=== PATIENT | female | born 2000 | race Caucasian/White ===

== ENCOUNTER 2022-07-14 06:36 | Emergency (ER) | payer MEDICAID, OTHER ==
[~2022-07-14] VITALS: Ht 162.6 cm; Wt 93.1 kg
[2022-07-14 06:45] VITALS: BP 153/109
[2022-07-15] MEDS ORDERED: IBUP-2030 MT (16:07)
== END 2022-07-14 10:01 | disposition left against medical advice (07) ==
LOC: ER 06:36
DX: Z53.21 Procedure and treatment not carried out due to patient leaving prior to being seen by health care provider (principal); J45.909 Unspecified asthma, uncomplicated

== ENCOUNTER 2022-07-15 08:38 | Emergency (ER) | payer MEDICAID, OTHER ==
[~2022-07-15] VITALS: Ht 162.6 cm; Wt 81.0 kg
[2022-07-15] MEDS ORDERED: SODIUM CHLORIDE 0.9% 1,000 ML IV ONE (09:15)
[2022-07-15] MEDS ORDERED: DIPHENHYDRAMINE 50MG/ML VIAL IV ONE (09:15)
[2022-07-15] MEDS ORDERED: PROCHLORPERAZINE 10MG/2ML VIAL IV ONE (09:15)
[2022-07-15 09:41] LABS: BASOPHILS % 0.3 % (0.0-2.0); EOSINOPHILS % 0.7 % (0.0-5.0); HEMATOCRIT. 41.7 % (36.0-48.0); LYMPHOCYTES % 19.8 % (20.0-50.0); MEAN CORPUSCULAR HEMOGLOBIN 28.5 pg (28.0-32.0); MEAN CORPUSCULAR VOLUME 84.7 fL (81.0-99.0); MEAN PLATELET VOLUME 9.6 fl (7.4-10.4); MONOCYTES % 5.6 % (2.0-8.0); NEUTROPHILS % 73.6 % (40.0-76.0); PLATELET 274 x1000/uL (130-400); RED BLOOD CELL COUNT 4.92 mill/uL (4.2-5.4); RED CELL DISTRIBUTION WIDTH 13.4 % (11.6-14.6)
[2022-07-15] MEDS ORDERED: DIPHENHYDRAMINE 50MG/ML VIAL IV NR (09:45)
[2022-07-15 09:47] LABS: CHLORIDE 104 mEq/L (98-107)
[2022-07-15 13:30] LABS: PARTIAL THROMBOPLASTIN TIME 27.6 sec (23.4-31.0); PROTHROMBIN TIME 10.6 sec (9.6-11.0)
[2022-07-15] MEDS ORDERED: LIDOCAINE HCL 1% 10 MG/ML 10ML VIAL ONE (14:42)
[2022-07-15] MEDS ORDERED: IBUP-2030 MT (16:07)
[2022-07-15 16:38] VITALS: BP 139/100
[2022-07-15 17:40] LABS: GLUCOSE CSF 56 mg/dL (41-75)
== END 2022-07-15 17:13 | disposition home or self-care (01) ==
LOC: ER 08:38
DX: R51.9 Headache, unspecified (principal); G93.2 Benign intracranial hypertension; J45.909 Unspecified asthma, uncomplicated; Z20.822 Contact with and (suspected) exposure to COVID-19
CPT/HCPCS: 36415; 62328; 70551; 80053; 82945; 84157; 84443; 85025; 85610; 85730; 87070; 87205; 87426; 89050; 96374; 96375; 99284; J0780; J1200; J3490; J7030; Z7610

== ENCOUNTER 2024-03-20 13:44 | Emergency (ER) | payer OTHER ==
[~2024-03-20] VITALS: Ht 160 cm; Wt 94.0 kg
[~2024-03-20 13:44] MED LIST: IBUP-2030 MT
[2024-03-20 13:51] VITALS: O2SAT 98
[2024-03-20 14:06] VITALS: BP 144/99; PULSE 91; RESP 16; TEMP 98.3; O2SAT 100
== END 2024-03-20 17:21 | disposition home or self-care (01) ==
LOC: ER 13:54
DX: R05.9 Cough, unspecified (principal); J45.909 Unspecified asthma, uncomplicated; I10 Essential (primary) hypertension; Z98.890 Other specified postprocedural states; Z86.59 Personal history of other mental and behavioral disorders
CPT/HCPCS: 71045; 99283